=== PATIENT | male | born 1980 | race Caucasian/White ===

== ENCOUNTER 2018-12-15 13:16 | Emergency (ER) | payer OTHER ==
[2018-12-15] MEDS ORDERED: ORPHENADRINE CITRATE 30 MG/ML AMP IM ONE (14:32)
[2018-12-15] MEDS ORDERED: traMADol 37.5MG/APAP 325MG 1 EA TAB PO ONE (14:32)
[2018-12-15] MEDS ORDERED: KETOROLAC TROMETHAMINE INJ 60 MG/2 ML VIAL IM ONE (14:32)
--- NOTE | 2018-12-15 14:36 | ED.PDOC ---
History of Present Illness - General Chief Complaint: Upper Extremity Injury Stated Complaint: right shoulder pain Time Seen by Provider: 12/15/18 14:32 Source: patient Exam Limitations: no limitations - History of Present Illness Initial Comments: PT PRESENTS WITH COMPLAINT OF RIGHT SHOULDER PAIN X 3 DAYS WITH NO HISTORY OF TRAUMA. PT STATES THAT HE HAS LIMITED RANGE OF MOTION OF RIGHT ARM DUE TO PAIN AND DIFFICULTY MOVING NECK TO IPSILATERAL SIDE DUE TO PAIN. OTC PAIN MEDS HAVE NOT BEEN EFFECTIVE. Pain - Upper Extremity: moderate: Shoulder, right Improving Factors: immobilization Worsening Factors: movement Allergies/Adverse Reactions: Allergies NO KNOWN ALLERGY Allergy (Verified 12/15/18 14:03) Home Medications: Ambulatory Orders Cyclobenzaprine HCl [Flexeril] 10 mg PO Q6HR PRN #20 tab 12/15/18 Ibuprofen 800 mg PO Q8HR PRN #30 tab 12/15/18 Tramadol-Acetaminophen [Ultracet] 1 - 2 tab PO Q6HR PRN #30 tab 12/15/18 Review of Systems - Review of Systems Constitutional: Denies: chills, fever Respiratory: Denies: cough, short of breath Cardiology: Denies: chest pain, palpitations Musculoskeletal: States: back pain, muscle pain, muscle stiffness, neck pain Skin: Denies: dryness, lesions Past Medical History (General) - Patient Medical History Hx Stroke: No Hx Congestive Heart Failure: No Hx Diabetes: No - Vaccination History Hx Influenza Vaccination: Yes - Social History Hx Tobacco Use: Yes Family Medical History - Family History Father Family History: Unknown Living Status: Unknown Physical Exam - Physical Exam General Appearance: Alert, No apparent distress, Well Developed, Well Groomed, Well Hydrated, Well Nourished Neck: non-tender, full range of motion, supple, normal inspection Cardiovascular/Respiratory: no respiratory distress Back Exam: no vertebral tenderness Shoulder Exam: no evidence of injury, limited ROM, pain, soft tissue tenderness - ALONG RIGHT TRAPEZIUS MUSCLE Elbow/Forearm Exam: non-tender, no evidence of injury, normal ROM Wrist Exam: non-tender, no evidence of injury, normal ROM Hand Exam: non-tender, no evidence of injury, normal ROM Neuro/Tendon: normal sensation, normal motor functions, normal tendon functions Mental Status: alert, oriented x 3 Skin Exam: normal color, warm/dry Departure - Departure Clinical Impression: Right shoulder strain Time of Disposition: 14:34 Disposition: Discharge to Home or Self Care Condition: Good Departure Forms: ED Discharge - Pt. Copy, Patient Portal Self Enrollment Instructions: Shoulder Pain (DC) Activity: no pushing/pulling with affected limb Referrals: UNKNOWN,PHYSICIAN [Primary Care Provider] - 1-5 Days Prescriptions: Cyclobenzaprine HCl [Flexeril] 10 mg PO Q6HR PRN #20 tab PRN Reason: Muscle Spasms Tramadol-Acetaminophen [Ultracet] 1 - 2 tab PO Q6HR PRN #30 tab PRN Reason: Pain Ibuprofen 800 mg PO Q8HR PRN #30 tab PRN Reason: Pain Home Medications: Ambulatory Orders Cyclobenzaprine HCl [Flexeril] 10 mg PO Q6HR PRN #20 tab 12/15/18 Ibuprofen 800 mg PO Q8HR PRN #30 tab 12/15/18 Tramadol-Acetaminophen [Ultracet] 1 - 2 tab PO Q6HR PRN #30 tab 12/15/18
[2018-12-15 15:26] VITALS: BP 106/68; TEMP 97.8; O2SAT 98
== END 2018-12-15 15:05 | disposition home or self-care (01) ==
LOC: ER 13:16
DX: S46.911A Strain of unspecified muscle, fascia and tendon at shoulder and upper arm level, right arm, initial encounter (principal); Z87.891 Personal history of nicotine dependence; X58.XXXA Exposure to other specified factors, initial encounter; Y92.9 Unspecified place or not applicable
CPT/HCPCS: J1885; J2360